=== PATIENT | male | born 1995 | race Caucasian/White ===

== ENCOUNTER 2024-01-31 14:15 | Emergency (ER) | payer SELFPAY ==
[2024-01-31] MEDS: Diphtheria,Pertussis(Acell),Tetanus Vaccine 0.5 ML Syringe IM ONE (16:46)
== END 2024-01-31 17:45 | disposition home or self-care (01) ==
LOC: JD.ED 14:15
DX: S61.210A Laceration without foreign body of right index finger without damage to nail, initial encounter (principal); Z23 Encounter for immunization; W26.8XXA Contact with other sharp object(s), not elsewhere classified, initial encounter
CPT/HCPCS: 73140-26-F6; 73140-F6; 90471; 90715; 99283-25